=== PATIENT | male | born 1985 | race Hispanic/Latino ===

== ENCOUNTER → 2023-11-29 | Outpatient (CLI) | payer SELFPAY ==
[2023-12-06 15:09] LABS: Testosterone, % Free 3.14 % (1.50-4.20); Testosterone, Total 293 ng/dL (264-916)
== END | disposition home or self-care (01) ==
PROVIDERS: PCP Family Medicine; Referring Provider Urology; Visit Provider Urology
DX: N52.9 Male erectile dysfunction, unspecified (principal)
CPT/HCPCS: 36415; 84402; 84403